=== PATIENT | female | born 1965 | race African-American/Black ===

== ENCOUNTER 2017-10-13 09:00 | Emergency (ER) | payer OTHER ==
[~2017-10-13] VITALS: Ht 180.3 cm; Wt 108.0 kg
[2017-10-13 09:06] VITALS: BP_SYST 160
--- NOTE | 2017-10-13 09:13 | NUR ---
Pt brought to bed 8, report endorsed to Valeria JORGENSEN
--- NOTE | 2017-10-13 09:23 | NUR ---
ER at bedside examining patient.
--- NOTE | 2017-10-13 09:28 | NUR ---
Pt ambulated into the ED c/o 5/10 pain and swelling to bilateral ankles, knees, and L hand and wrist x2 days. Pt states she has arthritis flares and due to trauma from weight loss surgery in 2006, her LUE periodically swells. Noted swelling and in BLE and L hand. Pt denies n/v/f. No other injuries/complaints per pt/noted.
--- NOTE | 2017-10-13 09:32 | NUR ---
Lab at bedside
[2017-10-13 10:01] LABS: CALCIUM 8.3 mg/dL (8.4-11.0); CREATININE 0.75 mg/dL (0.55-1.30); POTASSIUM 4.3 mmol/L (3.5-5.1)
[2017-10-13 10:06] LABS: ALBUMIN 3.4 g/dL (3.4-4.8)
[2017-10-13 10:12] LABS: BASOPHILS % (AUTO) 0.5 % (0.0-2.0); EOSINOPHILS # (AUTO) 0.2 K/uL (0.0-0.4); EOSINOPHILS % (AUTO) 5.1 % (0.0-4.0); HEMATOCRIT 29.5 % (36-48); HEMOGLOBIN 8.9 g/dL (12.0-16.0); LYMPHOCYTES # (AUTO) 1.1 K/uL (1.0-5.5); MEAN CORPUSCULAR HEMOGLOBIN 23 pg (27-31); MEAN CORPUSCULAR HGB CONC 30 % (32-36); MEAN CORPUSCULAR VOLUME 76 fL (79.0-98.0); MONOCYTES # (AUTO) 0.4 K/uL (0.0-1.0); NEUTROPHILS # (AUTO) 2.1 K/uL (1.8-7.7); NEUTROPHILS % (AUTO) 54.4 % (40.0-70.0); PLATELET COUNT (AUTO) 260 K/uL (130-430); RED BLOOD CELL COUNT(AUTO) 3.86 MIL/uL (4.2-6.2); RED CELL DISTRIBUTION WIDTH 18.2 % (9.0-15.0); WHITE BLOOD COUNT (AUTO) 3.8 K/uL (4.8-10.8)
--- NOTE | 2017-10-13 10:25 | NUR ---
Pt laying comfortably in bed with no signs of distress or discomfort.
[2017-10-13 10:51] VITALS: BP_SYST 150
--- NOTE | 2017-10-13 10:51 | NUR ---
Patient given written and verbal discharge instructions and verbalizes understanding. ER MD GONZALEZ discussed with patient the results and treatment provided. Patient in stable condition. Pt wishes to keep ID arm band. Rx of LASIX given. Patient educated on pain management and to follow up with PMD. Pain Scale 2. DR. Gonzalez aware. Opportunity for questions provided and answered.
== END 2017-10-13 10:57 | disposition home or self-care (01) ==
LOC: SED 09:00
DX: I87.8 Other specified disorders of veins (principal); M06.9 Rheumatoid arthritis, unspecified; F17.200 Nicotine dependence, unspecified, uncomplicated
CPT/HCPCS: 36415; 80053; 81025; 85025; 93005; 99285